=== PATIENT | female | born 1990 | race Caucasian/White ===

== ENCOUNTER 2021-03-19 22:18 | Emergency (ER) | payer OTHER ==
[~2021-03-19] VITALS: Ht 167.6 cm; Wt 60.0 kg
[2021-03-19 22:22] VITALS: BP 129/71
[2021-03-19] MEDS ORDERED: ACETAMINOPHEN 500 MG TABLET ONE (23:16)
[2021-03-19] MEDS ORDERED: ACETAMINOPHEN 500 MG TABLET PO ONE (23:30)
--- NOTE | 2021-03-19 23:51 | NUR ---
PAIN IMPROVED TO 2/10 RADIOLOGY CALLED TO EXPEDITE RADIOLOGY RESULT
[2021-03-20] MEDS ORDERED: IBUPROFEN 600 MG TABLET ONE (00:06)
[2021-03-20] MEDS ORDERED: IBUPROFEN 600 MG TABLET PO ONE (00:30)
== END 2021-03-20 00:38 | disposition home or self-care (01) ==
LOC: ED 23:59
DX: S93.401A Sprain of unspecified ligament of right ankle, initial encounter (principal); X58.XXXA Exposure to other specified factors, initial encounter; Y93.89 Activity, other specified; Y92.89 Other specified places as the place of occurrence of the external cause; Y99.8 Other external cause status
CPT/HCPCS: 99283